=== PATIENT | male | born 1945 | race Asian ===

== ENCOUNTER 2017-10-10 06:37 | Day surgery (SDC) | payer MEDICARE, OTHER ==
[~2017-10-10] VITALS: Ht 162.6 cm; Wt 66.8 kg
[~2017-10-10 06:37] MED LIST: BENA1TAB19 PO; GLIP1TAB5 PO; MONT10TA21 PO; OMEP20 PO; PRED1 PO
[2017-10-10] MEDS ORDERED: LIDOCAINE HCL 2% 5 ML JELLY TP ONE (06:38)
[2017-10-10] MEDS ORDERED: LIDOCAINE HCL 4% 50 ML SOLUTION TP ONE (06:38)
[2017-10-10] MEDS ORDERED: BENZOCAINE 20% 50 MCG/SPRAY 57 GM TP ONE (06:38)
[2017-10-10] MEDS ORDERED: SODIUM CHLORIDE 0.9% 1,000 ML IV ONE ×2 (06:48→07:00)
[2017-10-10] MEDS ORDERED: GABA-531 PO (07:06)
[2017-10-10] MEDS ORDERED: GLIP1TAB5 PO (07:06)
[2017-10-10] MEDS ORDERED: SUCR1TAB PO (07:07)
[2017-10-10] MEDS ORDERED: HYDR200T4 PO (07:12)
[2017-10-10] MEDS ORDERED: SULF500T60 PO (07:12)
[2017-10-10] MEDS ORDERED: ASPI81 PO (07:12)
[2017-10-10] MEDS ORDERED: MELO-107 PO (07:12)
[2017-10-10] MEDS ORDERED: BACL20TA PO (07:12)
[2017-10-10] MEDS ORDERED: BENA1TAB19 PO (07:12)
[2017-10-10] MEDS ORDERED: FAMO20 PO (07:12)
[2017-10-10] MEDS ORDERED: RANI150T7 PO (07:12)
[2017-10-10] MEDS ORDERED: FentaNYL CITRATE-PF 100 MCG/2 ML VIAL ONE (07:41)
[2017-10-10] MEDS ORDERED: MIDAZOLAM HCL 2 MG/2 ML VIAL ONE (07:41)
[2017-10-10 07:43] LABS: GLUCOMETER DEV NAME(LOC) SDS 5; GLUCOSE,POINT OF CARE 121 MG/DL (70-110)
[2017-10-10] MEDS ORDERED: MethylPREDNISolone SOD SUCC 125 MG/2 ML VIAL IVP ONE (09:00)
[2017-10-10] MEDS ORDERED: MethylPREDNISolone SOD SUCC 125 MG/2 ML VIAL ONE (09:16)
[2017-10-10] MEDS ORDERED: OXYGEN THERAPY IH SCH (20:00)
== END 2017-10-10 11:40 | disposition home or self-care (01) ==
LOC: SURGERY 06:37
PROVIDERS: ATTEND Internal Medicine Critical Care Medicine
DX: J38.4 Edema of larynx (principal); B37.0 Candidal stomatitis; J47.9 Bronchiectasis, uncomplicated; J84.111 Idiopathic interstitial pneumonia, not otherwise specified; K21.9 Gastro-esophageal reflux disease without esophagitis; E78.5 Hyperlipidemia, unspecified; I10 Essential (primary) hypertension; E11.9 Type 2 diabetes mellitus without complications; Z98.42 Cataract extraction status, left eye; Z98.41 Cataract extraction status, right eye; Z79.82 Long term (current) use of aspirin; Z79.899 Other long term (current) drug therapy
CPT/HCPCS: 31623; 31624; 71045; 82962; 87015; 87070; 87205; 87220; 88108; 88312; J2250; J2930; J3010; J7030